=== PATIENT | female | born 1985 | race Caucasian/White ===

== ENCOUNTER 2019-05-18 08:48 | Emergency (ER) | payer OTHER, SELFPAY ==
[2019-05-18 09:11] VITALS: BP 124/72; PULSE 66; RESP 18; TEMP 36.9; O2SAT 100
--- NOTE | 2019-05-18 10:02 | ED.GENADULT ---
HPI - General Adult General Chief complaint: Headache Stated complaint: aches headache exhausted Time Seen by Provider: 05/18/19 10:02 Source: patient History of Present Illness HPI narrative: Patient presents with sinus congestion and pressure for the past week. Patient states she has a sinus headache has not taken thing [id number] for her symptoms. Patient states she has generalized body aches but no fever no cough no shortness of breath no chest pain. Patient states she has seasonal allergies but is not taking thing [id number] for them. Related Data Allergies Allergy/AdvReac Type Severity Reaction Status Date / Time No Known Allergies Allergy Verified 05/18/19 10:08 Review of Systems Review of Systems: Narrative: CONSTITUTIONAL: Denies fever, chills, or sweats. EYES: Denies visual changes, redness, or discharge. ENT: Denies rhinorrhea, congestion, sore throat, or otalgia. CARDIOVASCULAR: Denies chest pain, palpitations, or edema. RESPIRATORY: Denies cough or dyspnea. GASTROINTESTINAL: Denies abdominal pain, nausea, vomiting, or diarrhea. GENITOURINARY: Denies dysuria or hematuria. SKIN: Denies rash or itching. MUSCULOSKELETAL: Denies back pain, joint pain, or myalgia. NEUROLOGIC: Denies headache, numbness, or weakness. PSYCHIATRIC: Denies anxiety or depression. [facility] Social History Social History Gender identity (if verbalized by the patient): Female Comments At time of signature, agree with nursing past medical, surgical, social and family history. There is no relevant family history pertinent to the presenting complaint Exam Narrative: Exam Narrative: GENERAL: Well-appearing, well-nourished, and in no acute distress. HEAD: Normocephalic, atraumatic. EYES: PERRLA and EOMI. ENT: Nares clear, no rhinorrhea or epistaxis. Mucous membranes moist. Mild maxillary tenderness moderate amount of postnasal drainage NECK: Supple. CHEST: Clear to auscultation. No respiratory distress. HEART: Regular rate and rhythm. No murmur heard. Normal peripheral pulses. ABDOMEN: Soft, nontender, nondistended, normal active bowel sounds. EXTREMITIES: Normal range of motion. No edema. SKIN: Warm, dry, no rash. NEURO: No focal deficits. Alert and oriented x3. Lisa Coma Scale Eye Opening: Spontaneous 4 [place] Coma Scale Motor: Obeys Commands 6 Lisa Coma Scale Verbal: Oriented 5 [place] Coma Scale Total 15 Course Vital Signs Vital signs: Vital Signs Temperature 36.9 C 05/18/19 09:11 Pulse Rate 66 05/18/19 09:11 Respiratory Rate 18 05/18/19 09:11 Blood Pressure 124/72 05/18/19 09:11 Pulse Oximetry 100 05/18/19 09:11 Temperature 36.9 C 05/18/19 09:11 Pulse Rate 66 05/18/19 09:11 Respiratory Rate 18 05/18/19 09:11 Blood Pressure 124/72 05/18/19 09:11 Pulse Oximetry 100 05/18/19 09:11 Addressed elevated BP today. Today's blood pressure higher than recommended range. Discussed importance of follow -up with PCP and possible care home effects/cardiovascular events related to HTN. Currently patient denies headache, dizziness, vision changes, CP or shortness of breath. Medical Decision Making Differential Diagnosis Differential Diagnosis: URI, sinusitis, otitis media, Vital Signs Vital Signs: Vital Signs Temperature 36.9 C 05/18/19 09:11 Pulse Rate 66 05/18/19 09:11 Respiratory Rate 18 05/18/19 09:11 Blood Pressure 124/72 05/18/19 09:11 Pulse Oximetry 100 05/18/19 09:11 Temperature 36.9 C 05/18/19 09:11 Pulse Rate 66 05/18/19 09:11 Respiratory Rate 18 05/18/19 09:11 Blood Pressure 124/72 05/18/19 09:11 Pulse Oximetry 100 05/18/19 09:11 Critical Care Time Critical Care Time Critical Care Time: No Discharge Plan Discharge Clinical Impression: Sinusitis, Sinus headache Patient Disposition: Home, Self-Care Condition: Stable Instructions: Antibiotic Form Additional In
== END 2019-05-18 10:26 | disposition home or self-care (01) ==
PROVIDERS: Emergency Provider Nurse Practitioner Family
DX: J32.9 Chronic sinusitis, unspecified (principal); F41.9 Anxiety disorder, unspecified
CPT/HCPCS: 99203; G0463

== ENCOUNTER 2019-08-07 17:58 | Emergency (ER) | payer OTHER, SELFPAY ==
[2019-08-07 18:00] VITALS: BP 125/71; PULSE 87; RESP 14; TEMP 37.2; O2SAT 99
--- NOTE | 2019-08-07 18:10 | ED.EAR ---
HPI - Ear Problem General Chief complaint: Ear Stated complaint: ear infection Time Seen by Provider: 08/07/19 18:11 Source: patient and RN notes reviewed Mode of arrival: ambulatory Limitations: no limitations History of Present Illness HPI Narrative: This is a 33 years old female presents to the office for an evaluation of headache for one week. Associated with photosensitivity at times. She also reports jaw pain that radiated to her right ear about four days ago. Her left ear feeling like there are fluid in them. She also reports vomiting once last night; but she took nyproxen on empty stomach. She has to leave work early today because she felt tired and also has pain. Related Data Home Medications Medication Instructions Recorded Confirmed citalopram [Celexa] 20 mg PO DAILY 05/18/19 08/07/19 clonazepam [Klonopin] 0.5 mg PO TID PRN 05/18/19 08/07/19 Allergies Allergy/AdvReac Type Severity Reaction Status Date / Time No Known Allergies Allergy Verified 05/18/19 10:08 Review of Systems Review of Systems: Narrative: CONSTITUTIONAL: Denies fever. Reports hot (but it's 80s outside today) EYES: Denies visual changes at this time. ENT: Denies rhinorrhea, congestion, sore throat. Reports otalgia, heard popping noise when she opens her jaw prior to pain. Denies history of TMJ. CARDIOVASCULAR: Denies chest pain RESPIRATORY: Denies cough GASTROINTESTINAL: Denies abdominal pain,vomiting, diarrhea. Reports nausea SKIN: Denies rash MUSCULOSKELETAL: Denies acute back pain NEUROLOGIC: Denies lightheaded/Dizziness PMFSH Past Medical History Medical History (Updated 08/07/19 @ 18:28 by MELECIO Wesley) Anxiety Social History Social History Gender identity (if verbalized by the patient): Female Comments At time of signature, I agree with nursing past medical, surgical, social and family history. There is no relevant family history pertinent to the presenting complaint. Exam Narrative: Exam Narrative: GENERAL: This is a well-nourished, well-developed patient, in no apparent distress. EYES: PERRL. EMOI. Sclera clear/white. Vision is grossly intact. EARS: External ears normal, auditory canals clear and without drainage, TMs normal without perforation. Hearing grossly intact. TMJ tenderness with palpation. NOSE: External nose normal with no obvious nasal discharge, nares without redness, no rhinorrhea. THROAT: Mucous membranes moist, posterior pharynx clear. NECK: Neck supple, non-tender without lymphadenopathy, masses or thyromegaly. CARDIOVASCULAR: Regular rate and rhythm without murmurs, gallops, or rubs. RESPIRATORY: Clear to auscultation. Breath sounds equal bilaterally. No wheezes, rales, or rhonchi. GASTROINTESTINAL: Abdomen soft, non-tender, nondistended. Bowel sounds are active. No hepato-splenomegaly, or palpable masses. No guarding. SKIN: warm, intact with no suspicious lesions or rash, good texture and turgor. NEURO: awake, alert, and oriented to person, place and time. There were no obvious focal neurologic abnormalities. Steady gait Lisa Coma Scale Eye Opening: Spontaneous 4 Lisa Coma Scale Motor: Obeys Commands 6 [place] Coma Scale Verbal: Oriented 5 Course Vital Signs Vital signs: Vital Signs Temperature 99.0 F 08/07/19 18:00 Pulse Rate 87 08/07/19 18:00 Respiratory Rate 14 08/07/19 18:00 Blood Pressure 125/71 08/07/19 18:00 Pulse Oximetry 99 08/07/19 18:00 Temperature 99.0 F 08/07/19 18:00 Pulse Rate 87 08/07/19 18:00 Respiratory Rate 14 08/07/19 18:00 Blood Pressure 125/71 08/07/19 18:00 Pulse Oximetry 99 08/07/19 18:00 Medical Decision Making [facility] Narrative Medical decision making narrative: Discharge instructions reviewed with patient, as well as provided in writing per nursing staff. The instructions also include specific and strict return/GO TO THE ER as well as f/u information.
== END 2019-08-07 18:25 | disposition home or self-care (01) ==
PROVIDERS: Emergency Provider Nurse Practitioner
DX: M26.601 Right temporomandibular joint disorder, unspecified (principal); F41.9 Anxiety disorder, unspecified
CPT/HCPCS: 99211; G0463

== ENCOUNTER 2019-12-24 09:06 | Emergency (ER) | payer OTHER, SELFPAY ==
--- NOTE | ~2019-12-24 | XR_ITS ---
XR chest 2V DATE: 12/24/2019 10:12 INDICATION: Cough, fever TECHNIQUE: PA and lateral views COMPARISON: None FINDINGS: No pulmonary infiltrate or consolidation, pleural effusion or pulmonary vascular congestion or pneumothorax. Heart size normal. No hilar or mediastinal enlargement. IMPRESSION: No active cardiopulmonary disease Reviewed, dictated and finalized at location A.
[2019-12-24 09:11] VITALS: BP 123/77; PULSE 84; RESP 16; TEMP 37; O2SAT 99
--- NOTE | 2019-12-24 10:07 | ED.URI ---
HPI - URI/Sore Throat General Chief Complaint: Upper Respiratory Infection Stated Complaint: nausea sob achey Time Seen by Provider: 12/24/19 09:41 Source: patient and RN notes reviewed Mode of arrival: ambulatory Limitations: no limitations History of Present Illness HPI Narrative: Patient presents today with a one-week history of sweats, chills, scratchiness in her throat. 3 days ago she developed tightness in her breathing. 2 nights ago she had a few episodes of diarrhea. Yesterday she had a fever of 100.3. This morning she vomited once. Denies nausea, sore throat, loss of taste or smell. She denies any significant cough. She has been taking ibuprofen for her symptoms. Smokes 1 to 2 cigarettes/day. No known COVID-19 exposure. MD elicited complaint: fever Related Data Home Medications Medication Instructions Recorded Confirmed citalopram [Celexa] 20 mg PO DAILY 05/18/19 12/24/19 clonazepam [Klonopin] 0.5 mg PO TID PRN 05/18/19 12/24/19 Allergies Allergy/AdvReac Type Severity Reaction Status Date / Time No Known Allergies Allergy Verified 12/24/19 09:31 Review of Systems Review of Systems: Narrative: CONSTITUTIONAL: + Fever, body aches, chills, sweats EYES: Denies visual changes, redness, or discharge. ENT: Denies rhinorrhea, congestion, sore throat, or otalgia. CARDIOVASCULAR: Denies chest pain, palpitations, or edema. RESPIRATORY: Denies cough. Tight breathing GASTROINTESTINAL: Denies abdominal pain. + Vomiting. GENITOURINARY: Denies dysuria or hematuria. SKIN: Denies rash, itching, or wounds. MUSCULOSKELETAL: Denies back pain, joint pain, or myalgia. NEUROLOGIC: Denies headache, numbness, tingling, or weakness. PSYCH: Denies depression or anxiety. [facility] Past Medical History Medical History (Updated 12/24/19 @ 10:22 by MELECIO Bowles, ) Anxiety Social History Social History Gender identity (if verbalized by the patient): Female Comments At time of signature, I have reviewed and agree with nursing past medical, surgical, social and family history unless otherwise noted. Please see nursing chart for further information. There is no relevant family history pertinent to the presenting complaint Exam Narrative: Exam Narrative: GENERAL: Ill-appearing, well-nourished, and in no acute distress. HEAD: Normocephalic, atraumatic. EYES: EOMI. No redness or drainage. Conjunctivae normal. ENT: Mucous membranes pink and moist. Nares clear. No rhinorrhea. TMs normal bilaterally. Throat normal. Uvula midline. NECK: Normal AROM. Supple. No lymphadenopathy. CHEST: No respiratory distress. Clear to auscultation. HEART: Regular rate and rhythm. No murmur appreciated. Normal peripheral pulses. ABDOMEN: Soft, nontender, nondistended, normal active bowel sounds. MUSCULOSKELETAL: No bony tenderness. EXTREMITIES: Normal range of motion. No edema. SKIN: Warm, dry, no rash. Capillary refill normal. Normal skin turgor. NEURO: No focal deficits. Alert and oriented x3. Gait steady. PSYCH: Normal affect. No signs of depression or anxiety. Course Course Emergency Course: Will order COVID-19 patch for patient. Due to recent exposure and symptoms, patient may have a possible COVID-19 infection. Signs and symptoms discussed with patient. Patient educated to self-isolate in a room in his/her home away from others they live with. Use mask if available. Patient was advised not to leave house for any reason ? Self-treatment discussed including Tylenol for fever, pain, or myalgia, and cough cold medications for symptoms. Patient to check temperature daily and monitor for symptoms of respiratory distress. Patient should check in daily with primary care office/system via phone/virtual platform ? Nature of the disease to cause severe respiratory distress discussed with the patient. If emergent care is needed, instructed to notify EMS or prim
== END 2019-12-24 10:30 | disposition home or self-care (01) ==
PROVIDERS: Emergency Provider Nurse Practitioner
DX: B34.9 Viral infection, unspecified (principal); Z20.828 Contact with and (suspected) exposure to other viral communicable diseases; F41.9 Anxiety disorder, unspecified
CPT/HCPCS: 71046; 87081; 87804; 87880; 99213; G0463

== ENCOUNTER 2019-12-25 06:46 | Outpatient (NON) | payer OTHER, SELFPAY ==
[2019-12-25 22:57] LABS: SARS-CoV-2 RNA PCR Negative
== END 2019-12-25 06:47 ==
PROVIDERS: Visit Provider Nurse Practitioner
DX: Z20.828 Contact with and (suspected) exposure to other viral communicable diseases (principal); B34.9 Viral infection, unspecified
CPT/HCPCS: 87635; C9803; U0003

== ENCOUNTER 2020-07-05 13:09 | Emergency (ER) | payer OTHER, SELFPAY ==
[2020-07-05 13:14] VITALS: BP 133/70; PULSE 68; RESP 20; TEMP 36.6; O2SAT 99
--- NOTE | 2020-07-05 13:21 | ED.BACK ---
HPI - Back Pain/Injury General Chief Complaint: Urogenital-Female Stated Complaint: Pain in back Time Seen by Provider: 07/05/20 13:21 Source: patient and RN notes reviewed History of Present Illness HPI Narrative: Patient is a 34-year-old female who presents the urgent care with complaints of right sided lower back pain. Patient states is been intermittent for the last 2 weeks and seems to be constant and dull more recently. Patient states that she has had no obvious injury to the back, fall or trauma. Denies of any blood in the urine, nausea, vomiting, fever. Patient states that she has had increased urination. Patient has been using Azo [id number] for symptoms. No other acute complaints. No acute distress noted. Patient aware of plan of care. Some parts of this dictation were generated by voice recognition software and may contain typographical and/or grammatical inaccuracies. Related Data Home Medications Medication Instructions Recorded Confirmed citalopram [Celexa] 20 mg PO DAILY 05/18/19 12/24/19 clonazepam [Klonopin] 0.5 mg PO TID PRN 05/18/19 12/24/19 Allergies Allergy/AdvReac Type Severity Reaction Status Date / Time No Known Allergies Allergy Verified 07/05/20 13:26 Review of Systems Review of Systems: Narrative: CONSTITUTIONAL: Denies fever, chills, or sweats. EYES: Denies visual changes, redness, or discharge. ENT: Denies rhinorrhea, congestion, sore throat, or otalgia. CARDIOVASCULAR: Denies chest pain, palpitations, or edema. RESPIRATORY: Denies cough or dyspnea. GASTROINTESTINAL: Reports of nausea without vomiting, diarrhea or abdominal pain GENITOURINARY: Reports of urinary frequency SKIN: Denies rash or itching. MUSCULOSKELETAL: Reports of right sided low back pain NEUROLOGIC: Denies headache, numbness, or weakness. All other systems reviewed are negative, except as documented in HPI. [facility] Past Medical History Medical History (Updated 07/05/20 @ 13:40 by MELECIO Lonodn) Anxiety Social History Social History Gender identity (if verbalized by the patient): Female Comments At the time of my signature, I reviewed and agree with the nursing past medical, surgical, social, and family history. There is no relevant family history pertinent to the patient complaint. Exam Narrative: Exam Narrative: GENERAL: This is a well-nourished, well-developed patient, in no apparent distress. HEAD: normocephalic, atraumatic. EYES: PERRL. Sclera clear/white. Vision is grossly intact. EARS: External ears normal NOSE: External nose normal with no obvious nasal discharge, nares without redness, no rhinorrhea. THROAT: Mucous membranes moist NECK: Neck supple CARDIOVASCULAR: Regular rate and rhythm without murmurs, gallops, or rubs. RESPIRATORY: Clear to auscultation. Breath sounds equal bilaterally. No wheezes, rales, or rhonchi. GASTROINTESTINAL: Abdomen soft, non-tender, nondistended. Bowel sounds are active. SKIN: warm, intact with no suspicious lesions or rash, good texture and turgor. NEURO: awake, alert, and oriented to person, place and time. There were no obvious focal neurologic abnormalities. EXTREMITIES: No clubbing, cyanosis, or edema. BACK: Mild right CVA tenderness. Course Vital Signs Vital signs: Vital Signs Temperature 97.8 F 07/05/20 13:14 Pulse Rate 68 07/05/20 13:14 Respiratory Rate 20 07/05/20 13:14 Blood Pressure 133/70 07/05/20 13:14 Pulse Oximetry 99 07/05/20 13:14 Temperature 97.8 F 07/05/20 13:14 Pulse Rate 68 07/05/20 13:14 Respiratory Rate 20 07/05/20 13:14 Blood Pressure 133/70 07/05/20 13:14 Pulse Oximetry 99 07/05/20 13:14 Reviewed MDM - Back Pain/Injury MDM Narrative Medical decision making narrative: Reviewed lab results with the patient. She is aware that urine analysis is not indicative of a urinary tract infection. Based on patient's recent history of pa
== END 2020-07-05 13:44 | disposition home or self-care (01) ==
PROVIDERS: Emergency Provider Nurse Practitioner Family
DX: R10.9 Unspecified abdominal pain (principal); F41.9 Anxiety disorder, unspecified
CPT/HCPCS: 81003; 99213; G0463

== ENCOUNTER 2023-05-31 13:09 | Emergency (ER) | payer OTHER, SELFPAY ==
[2023-05-31 13:16] VITALS: BP 146/78; PULSE 79; RESP 16; TEMP 36.9; O2SAT 99
--- NOTE | 2023-05-31 14:11 | ED.URI ---
HPI - URI/Sore Throat General Chief Complaint: Upper Respiratory Infection Stated Complaint: Abdominal Pain/Body Aches/Congestion Time Seen by Provider: 05/31/23 14:01 Source: patient, RN notes reviewed and old records reviewed Mode of arrival: ambulatory Limitations: no limitations History of Present Illness HPI Narrative: [age] year old female presents to [facility] for complaint of cough, nausea, generalized myalgias 3 days. Patient denies allergies, fevers, sore throat, or other GI complaints. Patient denies pertinent medical history. Patient able to control secretions. Patient able to tolerate fluids by mouth. Related Data Home Medications Medication Instructions Recorded Confirmed duloxetine 30 mg capsule,delayed 30 mg PO DAILY 05/31/23 05/31/23 release gabapentin 400 mg capsule 400 mg PO TID 05/31/23 05/31/23 propranolol 20 mg tablet 20 mg PO BID 05/31/23 05/31/23 Allergies Allergy/AdvReac Type Severity Reaction Status Date / Time No Known Allergies Allergy Verified 05/31/23 14:12 Review of Systems Review of Systems: All systems reviewed & are unremarkable except as noted in HPI and below Constitutional: Constitutional: Reports as per HPI and Reports body ache(s) Eyes: Eyes: Reports no additional eye complaints ENT: Reports system reviewed and no additional complaints, except as documented Cardiovascular: Cardiovascular: Reports no additional cardiovascular complaints, Denies chest pain and Denies dyspnea Respiratory: Respiratory: Reports as per HPI, Reports cough and Denies dyspnea Gastrointestinal: Gastrointestinal: Denies abdominal pain, Denies diarrhea, Reports nausea and Denies vomiting Musculoskeletal: Musculoskeletal: Reports no additional musculoskeletal complaints Neurologic: Reports system reviewed and no additional complaints, except as documented Psychiatric: Psychiatric: Reports no additional psychiatric complaints PMFSH Past Medical History Medical History (Updated 05/31/23 @ 14:14 by Lila Newman APRN) Anxiety Social History Social History Gender identity (if verbalized by the patient): Female Comments At the time of my signature, I reviewed and agree with the nursing past medical, surgical, social, and family history. There is no relevant family history pertinent to the patient complaint. Exam Const: General: cooperative, healthy appearing, comfortable, no acute distress, alert and well nourished Nutritional Appearance: well nourished Orientation/consciousness: patient oriented x3 Limitations: no limitations HENMT: Head: normal to inspection Ears: external ears normal Face/Nose/Sinus: Normal external nose present, Normal nares present, normal facial exam, No erythema and No edema Face and sinus: normal facial exam, no erythema and no edema Mouth: Yes Normal oral and palatal mucosa present Eyes: General: appearance normal, both eyes and all related structures Neck: Neck: normal visual inspection, full ROM and no meningeal signs Lymphatic: no lymphadenopathy noted and no lymphedema noted Chest: Chest palpation & inspection: normal inspection of the chest Resp: Effort & Inspection: normal respiratory effort and able to speak in complete sentences Auscultation: clear to auscultation bilaterally Cardio: Jugular venous distension: no JVD Rate: regular rate Rhythm: regular rhythm Peripheral pulses: Peripheral pulses 2+ throughout Back/Spine/Pelvis: Cervical Spine: cervical ROM normal Skin: General skin exam: normal color, no rashes or lesions noted and turgor normal Neuro: General: patient oriented x3, gait normal, moves all extremities and no meningeal signs Speech: normal speech Gait exam (Neuro): Normal gait present Extrem: General: normal to inspection, full ROM and capillary refill normal Psych: Appearance: grossly normal and well kempt Course Course Emergency Course:
== END 2023-05-31 14:15 | disposition home or self-care (01) ==
PROVIDERS: Emergency Provider Nurse Practitioner Family
DX: J06.9 Acute upper respiratory infection, unspecified (principal); Z20.822 Contact with and (suspected) exposure to COVID-19
CPT/HCPCS: 87426; 87804; 99213; G0463

== ENCOUNTER 2023-08-01 19:40 | Emergency (ER) | payer OTHER, SELFPAY ==
[2023-08-01 19:44] VITALS: BP 121/91; PULSE 89; RESP 16; TEMP 36.8; O2SAT 99
[2023-08-01 19:48] VITALS: BP 121/91; PULSE 89; RESP 16; TEMP 36.8; O2SAT 99
--- NOTE | 2023-08-01 19:56 | ED.GENADULT ---
HPI - General Adult General Chief complaint: Skin/Abscess/Foreign Body Stated complaint: Nausea/Vomiting/Skin Sore Left Thigh Time Seen by Provider: 08/01/23 19:56 Source: patient, RN notes reviewed and old records reviewed Mode of arrival: ambulatory Limitations: no limitations History of Present Illness HPI narrative: 37-year-old female presents to the [facility] with complaints of a cyst to her thigh. Also complaining generalized not feeling well Circular lesion measuring 2 x 2 to the left inner thigh. Patient is not swollen, no discharge noted. Possibly was a blister stir. No fluctuance, no firm areas, no increased warmth Related Data Home Medications Medication Instructions Recorded Confirmed duloxetine 30 mg capsule,delayed 30 mg PO DAILY 05/31/23 05/31/23 release gabapentin 400 mg capsule 400 mg PO TID 05/31/23 05/31/23 propranolol 20 mg tablet 20 mg PO BID 05/31/23 05/31/23 Allergies Allergy/AdvReac Type Severity Reaction Status Date / Time No Known Allergies Allergy Verified 05/31/23 14:12 Review of Systems Review of Systems: All systems reviewed & are unremarkable except as noted in HPI and below Constitutional: Constitutional: Reports no additional constitutional complaints Eyes: Eyes: Reports no additional eye complaints ENT: Reports system reviewed and no additional complaints, except as documented Cardiovascular: Cardiovascular: Reports no additional cardiovascular complaints, Denies chest pain and Denies dyspnea Respiratory: Respiratory: Reports no additional respiratory complaints, Denies chest congestion, Denies cough and Denies dyspnea Gastrointestinal: Gastrointestinal: Reports no additional gastrointestinal complaints, Denies abdominal pain, Denies nausea and Denies vomiting Musculoskeletal: Musculoskeletal: Reports no additional musculoskeletal complaints Integumentary/Breasts: Skin/Breast: Reports as per HPI Neurologic: Reports system reviewed and no additional complaints, except as documented Psychiatric: Psychiatric: Reports no additional psychiatric complaints Allergic/Immunologic: Allergic/Immunologic: Reports no additional allergic/immunologic complaints [facility] Past Medical History Medical History Anxiety Social History Social History Gender identity (if verbalized by the patient): Female Comments At the time of my signature, I reviewed and agree with the nursing past medical, surgical, social, and family history. There is no relevant family history pertinent to the patient complaint. Exam Const: General: cooperative, healthy appearing, comfortable, no acute distress, well developed, alert and well nourished Nutritional Appearance: well nourished and obese Orientation/consciousness: patient oriented x3 Limitations: no limitations HENMT: Head: normal to inspection Ears: hearing grossly normal bilaterally and external ears normal Face/Nose/Sinus: Normal external nose present, Normal nares present, Normal nasal mucous membranes and turbinates present, normal facial exam and face symmetric Face and sinus: normal facial exam and face symmetric Mouth: Yes Normal oral and palatal mucosa present, Yes lip normal and Yes moist mucous membranes Throat: posterior oropharynx normal and uvula midline Eyes: General: appearance normal, both eyes and all related structures Alignment and Position: alignment normal Periorbital: periorbital findings normal Pupils: Equal, round and reactive pupils present EOM: EOMs intact bilaterally Neck: Neck: normal visual inspection, full ROM, no lymphadenopathy and no meningeal signs Chest: Chest palpation & inspection: normal inspection of the chest Resp: Effort & Inspection: normal respiratory effort and able to speak in complete sentences Auscultation: clear to auscultation bilaterally, no crackles, no rales, no rhonchi and no wheeze
== END 2023-08-01 20:13 | disposition home or self-care (01) ==
PROVIDERS: Emergency Provider Nurse Practitioner
DX: L98.9 Disorder of the skin and subcutaneous tissue, unspecified (principal); B34.9 Viral infection, unspecified
CPT/HCPCS: 99213; G0463

== ENCOUNTER 2024-03-29 11:01 | Emergency (ER) | payer OTHER, SELFPAY ==
[2024-03-29 11:06] VITALS: BP 132/65; PULSE 82; RESP 16; TEMP 36.8; O2SAT 99
--- NOTE | 2024-03-29 11:12 | ED.URI ---
HPI - URI/Sore Throat General Chief Complaint: Upper Respiratory Infection Stated Complaint: throat/achey History of Present Illness HPI Narrative: 38-year-old female presented for complaint of nasal congestion, sore throat, body aches and Cough. Onset 3 days. Denies shortness of breath, wheezing nausea vomiting diarrhea or lethargy. Taking Sudafed , Tylenol and ibuprofen for symptoms. Related Data Home Medications ?Medication ?Instructions ?Recorded ?Confirmed ?Last Taken ?Type duloxetine 30 mg capsule,delayed 30 mg PO DAILY 05/31/23 05/31/23 Unknown History release gabapentin 400 mg capsule 400 mg PO TID 05/31/23 05/31/23 Unknown History propranolol 20 mg tablet 20 mg PO BID 05/31/23 05/31/23 Unknown History Allergies Allergy/AdvReac Type Severity Reaction Status Date / Time No Known Allergies Allergy Verified 03/29/24 11:12 Review of Systems Review of Systems: ROS per [facility] Past Medical History Medical History Anxiety Social History Social History Gender identity (if verbalized by the patient): Female Exam Narrative: GENERAL: mildly Ill-appearing, no acute distress. EYES: conjunctivae clear ENT: Mucous membranes moist. nasal congestion. TM pearly howell with normal light reflex bilaterally; no tragal tenderness. Oropharynx Not erythematous without lesions. Tonsils not enlarged and without exudate. No drooling, no hoarseness, no trismus, uvula midline. No tripod positioning, hot potato voice, or soft palate swelling. NECK: Supple. No lymphadenopathy CHEST: Clear to auscultation, breath sounds equal. No respiratory distress, speaks in full sentences. HEART: Regular rate and rhythm. No murmur heard. SKIN: Warm, dry, no rash. NEURO: Alert and oriented x3. Course Course Emergency Course: Patient is aware of diagnosis, understands and agrees to treatment plan. Anticipatory guidance given. Patient agrees to follow-up as directed and is aware of reasons to seek care at the emergency department. Portions of this record may have been created with voice recognition software Level of Care: Express Care Visit MDM - URI/Sore Throat MDM Narrative Medical decision making narrative: negative flu, COVID, and strep result reviewed with pt. Advise supportive treatments. Patient is appropriate for outpatient treatment and follow-up. Differential Diagnosis Differential diagnosis: Likely upper respiratory infection, sinusitis, viral infection, influenza and pharyngitis Discharge Plan Discharge Clinical Impression: Viral infection Patient Disposition: Home, Self-Care Condition: Stable Instructions: Upper Respiratory Infection (ED) Additional Instructions: Flu and COVID negative. Rapid strep swab was negative today You will be notified in a few days if the culture comes back positive for strep, and appropriate antibiotics will be called in at that time. if symptoms are due to a viral illness, it is not treated with antibiotics. Viral symptoms can be present for up to 10-14 days. Recommendations: Flonase spray and Zyrtec for sinus congestion Cough syrup may cause drowsiness; avoid driving or take it at night time. Tylenol every 8 hours as needed for pain/fever Soft foods, cool liquids, warm tea. Gargle with warm saltwater twice a day. Chloraseptic spray and throat lozenges. Rest and stay hydrated. --Follow up with your PCP --Go to the ER immediately if you cannot swallow your saliva, trouble breathing/wheezing, throat swelling, pain is persistent and severe Patient Language: Persian Prescriptions: No Action gabapentin 400 mg capsule 400 mg PO TID propranolol 20 mg tablet 20 mg PO BID duloxetine 30 mg capsule,delayed release(DR/EC) 30 mg PO DAILY Follow-up/Referrals: PHYSICIAN,PENETRATION TESTER [Primary Care Provider] - Stand Alone Forms: Work/School Release IP Time of Disposition: 11:30
[2024-03-29 11:32] LABS: EDCOVIDSCREEN Negative (Negative); EDINFLUASCREEN Negative (Negative); EDINFLUBSCREEN Negative (Negative); EDSTREPNEGPOS1 Negative (Negative)
== END 2024-03-29 11:34 | disposition home or self-care (01) ==
PROVIDERS: Emergency Provider Nurse Practitioner Family
DX: B34.9 Viral infection, unspecified (principal); Z20.822 Contact with and (suspected) exposure to COVID-19
CPT/HCPCS: 87081; 87426; 87804; 87880; 99213; G0463

== ENCOUNTER 2024-05-02 14:08 | Emergency (ER) | payer OTHER, SELFPAY ==
--- OUTSIDE RECORDS SUMMARY | 2024-05-02 14:10 | XMS_ITS | Clinical Summary ---
Author Organization [facility] Address [address] [place] [address] Care Team Providers Care Biometrics Specialist Name Role Phone Fay Sandoval MD Primary Care Provider [phone] Allergies No known active allergies Medications sertraline (ZOLOFT) 25 mg tablet Take 25 mg by mouth daily. Active clonazePAM (KlonoPIN) 1 mg tablet Take 1 mg by mouth 2 (two) times a day. Active hyoscyamine (LEVSIN) 0.125 mg tabletIndication s:Urinary Incontinence Take 1 tablet (0.125 mg total) by mouth every 6 (six) hours as needed for cramping. 15 tablet 8 Active Additional Information Patient not taking.Reported on 07/07/2021 HYDROcodone-acet aminophen (NORCO) 5-325 mg per tabletIndication s:Pain Take 1 tablet by mouth every 6 (six) hours as needed for pain. Do not exceed 8 tablets/day. 6 tablet 8 Active Additional Information Patient not taking.Reported on 07/07/2021 citalopram (CeleXA) 20 mg tablet Take 20 mg by mouth daily. Active ondansetron (ZOFRAN) 4 mg tablet Take 1 tablet (4 mg total) by mouth every 6 (six) hours. 12 tablet 9 Active Additional Information Patient not taking.Reported on 07/07/2021 ondansetron (ZOFRAN) 4 mg tablet Take 1 tablet (4 mg total) by mouth every 6 (six) hours. 12 tablet 9 Active Additional Information Patient not taking.Reported on 07/07/2021 prochlorperazine (COMPAZINE) 10 mg tablet Take 1 tablet (10 mg total) by mouth every 6 (six) hours as needed for nausea or vomiting 10 tablet 9 Active Additional Information Patient not taking.Reported on 07/07/2021 promethazine-DM (PROMETHAZINE-DM ) 1.25-3 mg/mL syrup Take 5 mL by mouth 4 (four) times a day as needed for cough 118 mL 9 Active Additional Information Patient not taking.Reported on 07/07/2021 naproxen (NAPROSYN) 500 mg tabletIndication s:Pain Take 1 tablet (500 mg total) by mouth 2 (two) times a day with meals 30 tablet 1 Active Additional Information Patient not taking.Reported on 07/07/2021 fluticasone propionate (FLONASE) 50 mcg/actuation nasal sprayIndications :Acute non-recurrent pansinusitis Administer 2 sprays into each nostril daily 16 g 1 Active Additional Information Patient not taking.Reported on 07/07/2021 ondansetron (ZOFRAN) 4 mg tablet Take 1 tablet (4 mg total) by mouth every 6 (six) hours 12 tablet 1 Active Additional Information Patient not taking.Reported on 07/07/2021 albuterol HFA (ProAir HFA) 90 mcg/actuation inhalerIndicatio ns:Bronchitis Inhale 2 puffs every 4 (four) hours as needed for wheezing or shortness of breath 8.5 g 2 Active Active Problems No known active problems Surgical History Surgery Date Site/Laterality Comments CERVICAL BIOPSY W/ LOOP ELECTRODE EXCISION Medical History Medical History Date Comments Depression Family History Medical History Relation Name Comments No Known Problems Father No Known Problems Mother Relation Name Status Comments Father Alive Mother Alive Social History Tobacco Use Types Packs/Day Years Used Date Smoking Tobacco: Every Day Cigarettes Smokeless Tobacco: Never Tobacco Cessation:Ready to Q uit: Yes; Counseling Given: Yes Alcohol Use Standard Drinks/Week Comments Yes 0 (1 standard drink = 0.6 oz pur e alcohol) occasionally Personal Safety Answer Date Recorded Have you ever been in or are you currently in a harmful physical or emotional relationship or is someone making you feel afraid or unsafe? 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 Gender Identity Not on file Sexual Orientation Not on file Obstetrics History Last Filed Vital Signs Vital Sign Reading Time Taken Comments Blood Pressure 139/101 08/18/2022 6:42 PM CDT Pt verbalized that they will follow up w/ PCP regarding HTN Pulse 99 08/18/2022 6:42 PM CDT Temperature 37.1 C (98.7 F) 08/18/2022 6:42 PM CDT Respiratory Rate 16 08/18/2022 6:42 PM CDT Oxygen Saturation 100% 08/18/2022 6:4 2 PM CDT Inhaled Oxygen Concentration - - Weight 106.6 kg (235 lb) 08/18/2022 1:2 8 PM CDT Height 170.2 cm (5' 7 ) 08/18/2022 1:28 PM CDT Body Mass Index 36.81 08/18/2022 1:28 PM CDT Plan of Treatment Health Maintenance Due Date Last Done Comments Cervical Cancer Screening 1984 Depression Screening 1984 Hepatitis C Screening 1984 Pneumococcal vaccine <65 (1 of 2 - PCV) 1990 DTaP/Tdap/Td Vaccine (1 - Tdap) 01/01/1996 Varicella Vaccines (1 of 2 - 13+ 2-dose series) 1997 Hepatitis B Screening 2002 Regular Well Visit/Exam 18-64 2002 Covid-19 Vaccine (3 - 2023-2 5 season) 2023 10/05/2020, 06/21/2020 Influenza Vaccine (#1) 2023 11/08/2013 HPV Vaccines Aged Out No longer eligi ble based on patient's age to complete this topic Insurance [facility] MEDICAID [facility] Care Teams Biometrics Specialist Relationship Specialty Start Date End Date Fay Sandoval MD PCP - General Family Medicine 08/18/22
--- OUTSIDE RECORDS SUMMARY | 2024-05-02 14:10 | XMS_ITS | Referral Summary ---
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
[2024-05-02 14:12] VITALS: BP 127/77; PULSE 86; RESP 20; TEMP 36.8; O2SAT 98
--- NOTE | 2024-05-02 15:35 | ED.GENADULT ---
HPI - General Adult General Chief complaint: Upper Respiratory Infection Stated complaint: Congestion/Sore Throat/Body Aches Source: patient Mode of arrival: ambulatory Limitations: no limitations History of Present Illness HPI narrative: Patient presents for evaluation of sinus symptoms. She indicates 2 weeks ago she had upper respiratory symptoms. Those symptoms resolved. Three days ago she had recurrence of her symptoms including sinus congestion when thick green nasal drainage. She also has some body aches. She denies any fever, chills, nausea, vomiting, diarrhea, cough, shortness of breath. No recent sick contacts to her knowledge. She does vape but quit smoking cigarettes. Related Data Home Medications ?Medication ?Instructions ?Recorded ?Confirmed ?Last Taken ?Type duloxetine 30 mg capsule,delayed 30 mg PO DAILY 05/31/23 05/02/24 Unknown History release gabapentin 400 mg capsule 400 mg PO TID 05/31/23 05/02/24 Unknown History propranolol 20 mg tablet 20 mg PO BID 05/31/23 05/02/24 Unknown History Allergies Allergy/AdvReac Type Severity Reaction Status Date / Time No Known Allergies Allergy Verified 05/02/24 14:48 Review of Systems Review of Systems: CONSTITUTIONAL: Denies fever, chills, or sweats. EYES: Denies visual changes, redness, or discharge. ENT: Reports sinus congestion and thick green nasal drainage. CARDIOVASCULAR: Denies chest pain, palpitations, or edema. RESPIRATORY: Denies cough or dyspnea. GASTROINTESTINAL: Denies abdominal pain, nausea, vomiting, or diarrhea. GENITOURINARY: Denies dysuria or hematuria. SKIN: Denies rash or itching. MUSCULOSKELETAL: Reports generalized body aches. NEUROLOGIC: Reports frontal headache. Denies numbness, dizziness, or weakness. PSYCHIATRIC: Denies anxiety or depression. [facility] Past Medical History Medical History Anxiety Surgical History Surgical History No pertinent past surgical history Family History Family History Mother Family history non-contributory Social History Social History Smoking status: Current every day smoker Tobacco type: e-cigarettes/vaping Substance use: never Living arrangements: with family Gender identity (if verbalized by the patient): Female Spiritual care concerns: No Exam Narrative: GENERAL: Well-appearing, well-nourished, and in no acute distress. HEAD: Normocephalic, atraumatic. EYES: PERRLA and EOMI. ENT: Frontal and bilateral maxillary sinus tenderness. Nares clear, no rhinorrhea or epistaxis. Mucous membranes moist. Oropharynx without tonsillar hypertrophy exudate or other lesions. Bilateral TMs pearly howell nonbulging NECK: Supple. No adenopathy or masses. No carotid bruits or JVD CHEST: Clear to auscultation. No respiratory distress. No wheezes rales or rhonchi HEART: Regular rate and rhythm. No murmur heard. Normal peripheral pulses. ABDOMEN: Soft, nontender, nondistended, normal active bowel sounds. EXTREMITIES: Normal range of motion. No edema. SKIN: Warm, dry, no rash. NEURO: No focal deficits. Alert and oriented x3. PSYCH: Normal mood and affect. Course Course Emergency Course: This is a 38-year-old female who presented for evaluation of sinus symptoms. She meets criteria for bacterial sinusitis based upon symptom recurrence and duration of time in which she has been symptomatic with mucopurulent discharge. Will discharge with augmentin. Increase hydration. OTC agents for symptom management. Follow up with primary provider. Go to the ER for worsening symptoms. Pt in agreement with plan of care. Level of Care: Express Care Visit Vital Signs Vital signs: Vital Signs Temperature 36.8 C 05/02/24 14:12 Pulse Rate 86 05/02/24 14:12 Respiratory Rate 05/02/24 14:12 Blood Pressure 127/77 05/02/24 14:12 Pulse Oximetry 98 05/02/24 14:12 Oxygen Delivery Room Air 05/02/24 14:12 Temperature 36.8 C 05/02/24 14:12 Pulse Rate 86 05/02/24 14:12 Respiratory Rate 20 05/02/24 14:12 Blood Pressure 127/77 05/02/24 14:12 Pulse Oximetry 98 05/02/24 14:12 Oxygen Delivery Room Air 05/02/24 14:12 Medical Decision Making Vital Signs Vital Signs: Vital Signs Temperature 36.8 C 05/02/24 14:12 Pulse Rate 86 05/02/24 14:12 Respiratory Rate 20 05/02/24 14:12 Blood Pressure 127/77 05/02/24 14:12 Pulse Oximetry 98 05/02/24 14:12 Oxygen Delivery Room Air 05/02/24 14:12 Temperature 36.8 C 05/02/24 14:12 Pulse Rate 86 05/02/24 14:12 Respiratory Rate 20 05/02/24 14:12 Blood Pressure 127/77 05/02/24 14:12 Pulse Oximetry 98 05/02/24 14:12 Oxygen Delivery Room Air 05/02/24 14:12 Discharge Plan Discharge Clinical Impression: Sinusitis Patient Disposition: Home, Self-Care Condition: Stable Instructions: Antibiotic Form, Sinusitis (ED) Patient Language: Armenian Prescriptions: New amoxicillin-pot clavulanate 875-125 mg tablet 1 tablet PO Q12H Qty: 20 0RF No Action gabapentin 400 mg capsule 400 mg PO TID propranolol 20 mg tablet 20 mg PO BID duloxetine 30 mg capsule,delayed release(DR/EC) 30 mg PO DAILY Follow-up/Referrals: Bryan Oakes MD [Physician] - Time of Disposition: 15:31
== END 2024-05-02 15:35 | disposition home or self-care (01) ==
PROVIDERS: Emergency Provider Nurse Practitioner
DX: J32.9 Chronic sinusitis, unspecified (principal); F17.290 Nicotine dependence, other tobacco product, uncomplicated
CPT/HCPCS: 99213; G0463